=== PATIENT | male | born 1955 | race Caucasian/White ===

== ENCOUNTER → 2018-12-09 | Outpatient (CLI) | payer OTHER ==
--- NOTE | 2018-12-09 12:55 | XR ---
EXAMINATION TYPE: XR elbow complete LT DATE OF EXAM: 12/09/2018 COMPARISON: None HISTORY: Left elbow strain TECHNIQUE: Three-view left elbow FINDINGS: No acute fractures are evident. Spurring is present from the radial aspect of the distal hu merus. Secondary ossification centers appear to be at the medial left elbow. No acute fractures are e vident. The anterior fat pad is normal. However, there is some elevation of posterior fat pad. Olecra non spurring is present. IMPRESSION: 1. There is minimal joint effusion with elevation of posterior fat pad but without significant eleva tion of the anterior fat pad. An occult fracture could be considered but is not identified. Follow-up can be performed as clinically indicated. 2. Degenerative changes within the left elbow.
== END | disposition home or self-care (01) ==
LOC: RADXRMAIN 12:29
PROVIDERS: ATTEND Emergency Medicine
DX: M19.022 Primary osteoarthritis, left elbow (principal)

== ENCOUNTER → 2018-12-30 | Outpatient (CLI) | payer OTHER ==
--- NOTE | 2018-12-30 09:49 | XR ---
EXAMINATION TYPE: XR elbow complete LT DATE OF EXAM: 12/30/2018 COMPARISON: 12/09/2018 HISTORY: 63-year-old male unspecified sprain of left elbow, posterior pain TECHNIQUE: 3 views FINDINGS: Small anterior elbow joint effusion. Subtle tiny punctate loose bodies are suggested. There is degene rative spurring at both radiocapitellar and ulnotrochlear joint similar prior. Corticated ossific den sities below the medial epicondyle measure 1.3 cm and 0.7 cm. Additional spurring at the lateral epic ondyles. Some fragmented enthesopathy at the olecranon process. Mild overlying soft tissue swelling. IMPRESSION: 1. No acute osseous abnormality seen. 2. A small elbow joint effusion anteriorly is nonspecific, probably reactive to underlying osteoarthr osis. Suggestion of tiny punctate anterior loose bodies. Findings similar to prior. 3. 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 4. Additional bony spurring at the lateral epicondyle suggesting chronic extensor tendinopathy. 5. Stable large olecranon spur compatible with enthesopathy. There is some chronic fragmentation of t he spur that may contribute to posterior symptoms.
== END | disposition home or self-care (01) ==
LOC: RADXRMAIN 09:17
PROVIDERS: ATTEND Emergency Medicine
DX: M25.422 Effusion, left elbow (principal)

== ENCOUNTER → 2024-02-10 | Day surgery (SDC) | payer MEDICARE ==
[~2024-02-10] MED LIST: LIDOCAINE 2% (PF) 20 MG/ML 5 ML VIAL ONE; PROPOFOL 10 MG/ML 20 ML VIAL IV ONE
[2024-02-10 10:06] VITALS: RESP 16; TEMP 97.9
[2024-02-10] MEDS: IV FLUID CONTINUATION 1,000 ML IV ONE (10:15)
[2024-02-10] MEDS: LACTATED RINGERS 1,000 ML IV SCH (10:15)
--- NOTE | 2024-02-10 11:30 | P.PCN ---
Date of Procedure: 02/10/24 Procedure(s) Performed: BRIEF HISTORY: Patient is a 68-year-old pleasant white male scheduled for an elective colonoscopy as a part of screening for colon cancer. PROCEDURE PERFORMED: Colonoscopy. PREOPERATIVE DIAGNOSIS: Screening for colon cancer. IV sedation per Anesthesia. PROCEDURE: After informed consent was obtained, the patient, was brought into the endoscopy unit. IV sedation was administered by Anesthesia under continuous monitoring. Digital rectal examination was normal. Initially the Olympus CF-160 flexible video colonoscope was then inserted in the rectum, gradually advanced into the cecum without any difficulty. Careful examination was performed as the scope was gradually being withdrawn. Ileocecal valve and the appendiceal orifice were visualized and appeared normal. Prep was excellent. Mucosa of the cecum, ascending colon, transverse colon, descending colon, sigmoid colon, and rectum appeared normal. Scattered sigmoid diverticulosis. Retroflexion was performed in the rectum and no lesions were seen. The patient tolerated the procedure well. IMPRESSION: Normal-appearing colon from rectum to cecum with no evidence of colorectal neoplasia. Scattered sigmoid diverticulosis. RECOMMENDATIONS: Findings of this examination were discussed with the patient as well as his family. He was advised to have repeat screening colonoscopy in 10 years..
[2024-02-10 11:50] VITALS: BP 140/83; PULSE 71
== END ==
LOC: ORWHC2ENDO 09:32
PROVIDERS: ATTEND Internal Medicine Gastroenterology
DX: Z12.11 Encounter for screening for malignant neoplasm of colon (principal); K57.30 Diverticulosis of large intestine without perforation or abscess without bleeding; I10 Essential (primary) hypertension; E78.5 Hyperlipidemia, unspecified; M19.90 Unspecified osteoarthritis, unspecified site; Z79.899 Other long term (current) drug therapy; Z98.890 Other specified postprocedural states
CPT/HCPCS: J2704; J2001; G0121